=== PATIENT | female | born 1930 | race Caucasian/White ===

== ENCOUNTER 2017-01-03 06:37 | Day surgery (SDC) | payer OTHER ==
[~2017-01-03 06:37] MED LIST: ACET500CAP PO; ADVIL PO; AMB5 PO; AVALIDE1 TAB PO; AVAPRO; BEN25 PO; BENADRYL; BETIMOL; BETIMOL0.5 % OP; BONIVA; CALCIUM; CALTRA600D PO; CENTRUM TAB1 TAB PO; CIP5 PO; CRANBERRY500 MG OR; CRESTOR; CRESTOR10 PO; CRESTOR5 MG PO; FISH-EPA1000 MG PO; HYDROCHLOROT12.5 MG PO; KLOR-CON M1010 MEQ PO; LEXAPRO10 PO; LIOR10 PO; MELATONIN; MELATONIN5 M1 PO; MULTIPLE VIT PO; NEUR100 PO; NEXIUM; NEXIUM40 PO; NORCO1 TA1 PO; PAX10 PO; PLAVIX; PLAVIX PO; PREV30 PO; PRILO PO; PRILOSEC PO; TIMOLOL MAL0.5 % OPH; ULTRAM50 PO; UNKNOWN DIURETIC; VITAMIN D; VITAMIN D31000 UNIT PO; XALAT OPH; [UNRECOGNIZED DRUG - CODE] PO; [UNRECOGNIZED DRUG - OTHER]; [UNRECOGNIZED DRUG - REMARK]
== END 2017-01-03 09:57 | disposition home or self-care (01) ==
LOC: SDC 06:37
PROVIDERS: Orthopaedic Surgery
PROC: 3E0R3BZ Introduction of Anesthetic Agent into Spinal Canal, Percutaneous Approach (ICD-10-PCS; 2017-01-03)
PROC: 3E0R33Z Introduction of Anti-inflammatory into Spinal Canal, Percutaneous Approach (ICD-10-PCS; principal; 2017-01-03 07:45)
DX: M54.16 Radiculopathy, lumbar region (principal); E78.00 Pure hypercholesterolemia, unspecified; M81.0 Age-related osteoporosis without current pathological fracture; M19.90 Unspecified osteoarthritis, unspecified site; K21.9 Gastro-esophageal reflux disease without esophagitis; E11.9 Type 2 diabetes mellitus without complications; F41.9 Anxiety disorder, unspecified; F32.9 Major depressive disorder, single episode, unspecified; Z87.442 Personal history of urinary calculi; Z88.0 Allergy status to penicillin; Z88.1 Allergy status to other antibiotic agents; Z88.5 Allergy status to narcotic agent; Z88.6 Allergy status to analgesic agent; Z88.8 Allergy status to other drugs, medicaments and biological substances; Z96.1 Presence of intraocular lens; Z90.89 Acquired absence of other organs; Z90.49 Acquired absence of other specified parts of digestive tract; Z90.710 Acquired absence of both cervix and uterus; Z98.41 Cataract extraction status, right eye; Z98.42 Cataract extraction status, left eye; Z98.890 Other specified postprocedural states
CPT/HCPCS: 82962; J1040; J2250; J2405; J3010; Q9967

== ENCOUNTER 2017-01-17 06:05 | Day surgery (SDC) | payer OTHER | END 2017-01-17 23:59 | disposition home or self-care (01) | LOC: SDC 06:05 | PROVIDERS: Orthopaedic Surgery | PROC: 3E0S33Z Introduction of Anti-inflammatory into Epidural Space, Percutaneous Approach (ICD-10-PCS; 2017-01-17) | PROC: B01BZZZ Fluoroscopy of Spinal Cord (ICD-10-PCS; 2017-01-17) | PROC: 3E0S3BZ Introduction of Anesthetic Agent into Epidural Space, Percutaneous Approach (ICD-10-PCS; principal; 2017-01-17 07:45) | DX: M54.16 Radiculopathy, lumbar region (principal); M81.0 Age-related osteoporosis without current pathological fracture; M19.90 Unspecified osteoarthritis, unspecified site; I69.351 Hemiplegia and hemiparesis following cerebral infarction affecting right dominant side; E78.00 Pure hypercholesterolemia, unspecified; E11.39 Type 2 diabetes mellitus with other diabetic ophthalmic complication; H40.9 Unspecified glaucoma; K21.9 Gastro-esophageal reflux disease without esophagitis; K57.90 Diverticulosis of intestine, part unspecified, without perforation or abscess without bleeding; L40.9 Psoriasis, unspecified; F41.9 Anxiety disorder, unspecified; F32.9 Major depressive disorder, single episode, unspecified; Z88.0 Allergy status to penicillin; Z88.2 Allergy status to sulfonamides; Z88.5 Allergy status to narcotic agent; Z88.8 Allergy status to other drugs, medicaments and biological substances; Z79.02 Long term (current) use of antithrombotics/antiplatelets; Z79.899 Other long term (current) drug therapy; Z98.41 Cataract extraction status, right eye; Z98.42 Cataract extraction status, left eye; Z96.1 Presence of intraocular lens; Z90.89 Acquired absence of other organs; Z90.49 Acquired absence of other specified parts of digestive tract; Z87.442 Personal history of urinary calculi; Z90.710 Acquired absence of both cervix and uterus; Z98.890 Other specified postprocedural states | CPT/HCPCS: 82962; J1040; J2250; J3010; Q9967 ==